=== PATIENT | female | born 1965 | race Caucasian/White ===

== ENCOUNTER 2021-10-02 15:36 | Emergency (ER) | payer BC, MEDICAID, SELFPAY ==
--- NOTE | ~2021-10-02 | XR_ITS ---
EXAMINATION: XR chest 2V DATE: 10/02/2021 16:10 INDICATION: Cough. Shortness of breath. TECHNIQUE: Frontal and lateral views of the chest were obtained. COMPARISON: None. FINDINGS: There is mild elevation of right hemidiaphragm. No pleural effusion or pneumothorax. The he art size is normal. IMPRESSION: 1. No acute cardiopulmonary disease. Reviewed, dictated and finalized at location A. 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
[2021-10-02 15:43] VITALS: BP 152/84; PULSE 64; RESP 16; TEMP 37; O2SAT 98
--- NOTE | 2021-10-02 15:50 | ED.URI ---
HPI - URI/Sore Throat General Chief Complaint: Upper Respiratory Infection Stated Complaint: Sinus Pain/Chest Congestion Time Seen by Provider: 10/02/21 15:40 Source: patient and RN notes reviewed History of Present Illness HPI Narrative: Patient is a 56-year-old female who presents the urgent care with complaints of continuous sinus congestion, fatigue, chest congestion, cough and lethargy. Patient states that it started 2 weeks ago and on Thursday she was placed on a Medrol Dosepak and a Z-Brendon from her PCP on a televisit. Patient has had negative rapid Covid test x3 in the last 2 weeks. Patient was not Covid vaccinated. Patient states that she finished her prescriptions today. Patient is having pain with deep breathing to the left. Denies of chest pain or shortness of breath. Denies of any recent fevers, nausea or vomiting. No other acute complaints. No acute distress noted. Patient aware of the plan of care. Some parts of this dictation were generated by voice recognition software and may contain typographical and/or grammatical inaccuracies. Related Data Home Medications Medication Instructions Recorded Confirmed esomeprazole magnesium [Nexium] 20 mg PO DAILY 10/02/21 10/02/21 estradiol [Divigel] 1 packet TRANSDERMAL DAILY 10/02/21 10/02/21 levocetirizine [Xyzal] 5 mg PO DAILY 10/02/21 10/02/21 montelukast [Singulair] 10 mg PO DAILY 10/02/21 10/02/21 Allergies Allergy/AdvReac Type Severity Reaction Status Date / Time No Known Allergies Allergy Verified 10/02/21 15:56 Review of Systems Review of Systems: CONSTITUTIONAL: Denies fever, chills, or sweats. Reports of fatigue EYES: Denies visual changes, redness, or discharge. ENT: Reports of congestion, rhinorrhea CARDIOVASCULAR: Denies chest pain, palpitations, or edema. RESPIRATORY: Reports of cough without dyspnea. Reports of some left-sided pain with deep breathing GASTROINTESTINAL: Denies abdominal pain, nausea, vomiting, or diarrhea. GENITOURINARY: Denies dysuria or hematuria. SKIN: Denies rash or itching. MUSCULOSKELETAL: Denies back pain, joint pain. Reports of body aches NEUROLOGIC: Denies headache, numbness, or weakness. All other systems reviewed are negative, except as documented in HPI. PMFSH Comments At the time of my signature, I reviewed and agree with the nursing past medical, surgical, social, and family history. There is no relevant family history pertinent to the patient complaint. Exam Narrative: GENERAL: This is a well-nourished, well-developed patient. Appears fatigued HEAD: normocephalic, atraumatic. EYES: PERRL. Sclera clear/white. Vision is grossly intact. EARS: External ears normal, auditory canals clear and without drainage, mild fluid noted behind bilateral TMs without otitis. TMs normal without perforation. Hearing grossly intact. NOSE: External nose normal with no obvious nasal discharge, nares without redness, clear to yellow rhinorrhea. THROAT: Mucous membranes moist, posterior pharynx clear. NECK: Neck supple, non-tender without lymphadenopathy CARDIOVASCULAR: Regular rate and rhythm without murmurs, gallops, or rubs. RESPIRATORY: Slightly diminished left lower without crackles or wheezes. Otherwise clear throughout SKIN: warm, intact with no suspicious lesions or rash, good texture and turgor. NEURO: awake, alert, and oriented to person, place and time. There were no obvious focal neurologic abnormalities. EXTREMITIES: No clubbing, cyanosis, or edema. Course Course Level of Care: Express Care Visit Vital Signs Vital signs: Vital Signs Temperature 98.6 F 10/02/21 15:43 Pulse Rate 64 10/02/21 15:43 Respiratory Rate 16 10/02/21 15:43 Blood Pressure 152/84 H 10/02/21 15:43 Pulse Oximetry 98 10/02/21 15:43 Temperature 98.6 F 10/02/21 15:43 Pulse Rate 64 10/02/21 15:43 Respiratory Rate 16 10/02/21 15:43 Blood Pressure 152/84 H 10/02/21 15:43 Pulse Oximetry 98 10/02/21 15:43 Reviewed-patient
== END 2021-10-02 16:33 | disposition home or self-care (01) ==
PROVIDERS: Emergency Provider Nurse Practitioner Family; PCP Internal Medicine
DX: J32.8 Other chronic sinusitis (principal); K21.9 Gastro-esophageal reflux disease without esophagitis
CPT/HCPCS: 71046; 99213; G0463

== ENCOUNTER 2021-12-23 13:07 | Emergency (ER) | payer BC, MEDICAID, SELFPAY ==
[2021-12-23 13:12] VITALS: BP 150/90; PULSE 65; RESP 20; TEMP 36.5; O2SAT 97
--- NOTE | 2021-12-23 13:17 | ED.EAR ---
HPI - Ear Problem General Chief complaint: Ear Stated complaint: Ear Pain Time Seen by Provider: 12/23/21 13:18 Source: patient Mode of arrival: ambulatory Limitations: no limitations History of Present Illness HPI Narrative: Ms. souza is a 56-year-old female patient presenting to the clinic today with complaints of left ear pain that began yesterday. She reports she had an ice pick stabbing pain to her ear with bloody discharge coming from her ear today. Has had this happen before when her ear ruptured and she received eardrops and this helped her pain. She denies any fever or chills. Does have nasal congestion and felt like her ears were congested. Related Data Home Medications Medication Instructions Recorded Confirmed esomeprazole magnesium [Nexium] 20 mg PO DAILY 10/02/21 12/23/21 levocetirizine [Xyzal] 5 mg PO DAILY 10/02/21 12/23/21 montelukast [Singulair] 10 mg PO DAILY 10/02/21 12/23/21 Allergies Allergy/AdvReac Type Severity Reaction Status Date / Time No Known Allergies Allergy Verified 12/23/21 13:20 Review of Systems Review of Systems: Pertinent positives per HPI. Patient denies any fever, chills, rash, headache, visual changes, dizziness, cough, runny nose, sore throat, shortness of breath, chest pain, palpitations, nausea, vomiting, diarrhea, constipation, abdominal pain, or any urinary issues. PMFSH Comments At the time of my signature, I reviewed and agree with the nursing past medical, surgical, social, and family history. There is no relevant family history pertinent to the patient complaint. Exam Narrative: General: Well-developed, well nourished, in no apparent distress Head: Normocephalic, atraumatic Eyes: Pupils equally round and reactive to light bilaterally, EOM intact, sclera and conjunctive clear, no discharge, lids normal Ears: Right TMs intact, mild bulging, and left TM questionable rupture, flat, mildly red,without any obvious discharge ear canals clear, no drainage, grossly hearing normal. Nose: Nares patent, no nasal discharge, no inflammation, no sinus tenderness. Mouth: Oropharynx without lesions or masses, good dentition, MMM. Neck: Supple, trachea midline, no enlargement of anterior or posterior cervical nodes, no thyroid masses or goiter palpable. Cardio: Regular rate and rhythm, s1 and s2 normal, no murmur appreciated. Resp: Clear to auscultation bilaterally anteriorly and posteriorly, no rhonchi, rales, wheezing or rubs Course Course Emergency Course: Portions of this record may have been created with voice recognition software. Level of Care: Express Care Visit Vital Signs Vital signs: Vital Signs Temperature 36.5 C 12/23/21 13:12 Pulse Rate 65 12/23/21 13:12 Respiratory Rate 20 12/23/21 13:12 Blood Pressure 150/90 H 12/23/21 13:12 Pulse Oximetry 97 12/23/21 13:12 Temperature 36.5 C 12/23/21 13:12 Pulse Rate 65 12/23/21 13:12 Respiratory Rate 20 12/23/21 13:12 Blood Pressure 150/90 H 12/23/21 13:12 Pulse Oximetry 97 12/23/21 13:12 Vital signs reviewed Medical Decision Making MDM Narrative Medical decision making narrative: At the time of visit patient is resting comfortably on the exam table. She reports she is having pain to the left ear with pain also radiating into her jaw and cheek. [place] like an ice pick stabbed her ear and then she developed bloody discharge from the ear. Feels as though her hearing is muffled. I suspect a spontaneous rupture of her ear due to eustachian tube dysfunction. I will go ahead and give her a prescription for some ofloxacin eardrops prevent infection and have her follow-up with an ears nose and throat provider. She voiced understanding of supportive measures and discharge instructions Vital Signs Vital Signs: Vital Signs Temperature 36.5 C 12/23/21 13:12 Pulse Rate 65 12/23/21 13:12 Respiratory Rate 20 12/23/21 13:12 Blood Pressure 150/90 H 12/23/21 13:12 Pulse Oximetry 97 0
== END 2021-12-23 13:34 | disposition home or self-care (01) ==
PROVIDERS: Emergency Provider Nurse Practitioner Family; PCP Internal Medicine
DX: H65.92 Unspecified nonsuppurative otitis media, left ear (principal); H72.92 Unspecified perforation of tympanic membrane, left ear; K21.9 Gastro-esophageal reflux disease without esophagitis
CPT/HCPCS: 99213; G0463

== ENCOUNTER 2023-08-21 08:53 | Emergency (ER) | payer OTHER, SELFPAY ==
[2023-08-21 09:08] VITALS: BP 148/93; PULSE 81; RESP 16; TEMP 36.7; O2SAT 100
--- NOTE | 2023-08-21 09:26 | ED.GENADULT ---
HPI - General Adult General Chief complaint: Urogenital-Female Stated complaint: Urinary Problem Time Seen by Provider: 08/21/23 09:26 Source: patient, RN notes reviewed and old records reviewed Mode of arrival: ambulatory Limitations: no limitations History of Present Illness HPI narrative: 57-year-old female presents to [facility] with complaints of burning with urination, frequency, urgency that started on Thursday evening. Patient states he is having some suprapubic pain. denies fevers, back pain, vomiting MD complaint: dysuria Onset (ago): day(s) (3) Related Data Home Medications Medication Instructions Recorded Confirmed esomeprazole magnesium 20 mg 20 mg PO DAILY 10/02/21 12/23/21 capsule,delayed release (Nexium) levocetirizine 5 mg tablet (Xyzal) 5 mg PO DAILY 10/02/21 12/23/21 montelukast 10 mg tablet 10 mg PO DAILY 10/02/21 12/23/21 (Singulair) Allergies Allergy/AdvReac Type Severity Reaction Status Date / Time No Known Allergies Allergy Verified 12/23/21 13:20 Review of Systems Constitutional: Constitutional: Reports no additional constitutional complaints, Denies body ache(s), Denies chills, Denies fatigue, Denies fever(s) and Denies headache(s) Eyes: Eyes: Reports no additional eye complaints and Denies blurry vision ENT: Reports system reviewed and no additional complaints, except as documented, Denies vertigo, Denies dizziness, Denies ear discharge, Denies otalgia, Denies facial pain, Denies headache(s), Denies nasal congestion, Denies nasal discharge, Denies sinus pain, Denies sinus pressure and Denies sore throat Cardiovascular: Cardiovascular: Reports no additional cardiovascular complaints, Denies chest pain, Denies chest pain at rest, Denies rapid heart rate and Denies dyspnea Respiratory: Respiratory: Reports no additional respiratory complaints, Denies chest congestion, Denies cough, Denies pain on inspiration, Denies pain with cough and Denies dyspnea Gastrointestinal: Gastrointestinal: Reports abdominal pain, Denies diarrhea, Denies nausea and Denies vomiting Genitourinary: Genitourinary: Reports as per HPI, Reports nocturia, Reports dysuria, Denies flank pain, Reports urinary urgency, Denies vaginal discharge and Denies vaginal dryness Integumentary/Breasts: Skin/Breast: Denies rash Neurologic: Reports system reviewed and no additional complaints, except as documented, Denies vertigo, Denies dizziness and Denies headache(s) Endocrine: Endocrine: Denies fatigue PMFSH Comments At the time of my signature, I reviewed and agree with the nursing past medical, surgical, social, and family history. There is no relevant family history pertinent to the patient complaint. Exam Const: General: cooperative, healthy appearing, no acute distress and well nourished Nutritional Appearance: well nourished Orientation/consciousness: patient oriented x3 Limitations: no limitations HENMT: Head: normal to inspection and normocephalic Ears: external ears normal, TM's normal bilaterally, mastoids normal and Abnormal EAC present Face/Nose/Sinus: normal facial exam Face and sinus: normal facial exam Mouth: Yes Normal oral and palatal mucosa present, Yes oropharynx normal and Yes moist mucous membranes Throat: tonsils normal, uvula midline and no uvular edema Eyes: General: appearance normal, both eyes and all related structures Sclera: sclerae normal Pupils: Equal, round and reactive pupils present Resp: Effort & Inspection: normal respiratory effort, able to speak in complete sentences, no audible wheezes, no cough, no respiratory distress and no retractions Cardio: Rate: regular rate GI: Inspection: normal to inspection GI Palp: No abdominal tenderness, Yes Soft to palpation, No Firmness to palpation present (GI), No Tenderness to palpation present (GI), No Guarding due to palpation present (GI) and No Rigid due to palpation Auscultation: normal bowel sounds Skin: General skin exam: normal colo
== END 2023-08-21 09:38 | disposition home or self-care (01) ==
PROVIDERS: Emergency Provider Registered Nurse; PCP Internal Medicine
DX: N30.91 Cystitis, unspecified with hematuria (principal); B96.20 Unspecified Escherichia coli [E. coli] as the cause of diseases classified elsewhere
CPT/HCPCS: 81003; 87077; 87086; 87186; 99213; G0463

== ENCOUNTER 2023-10-06 15:51 | Emergency (ER) | payer OTHER, SELFPAY ==
--- NOTE | 2023-10-06 15:58 | ED.FEMALEGU ---
HPI - Female Genitourinary General Chief complaint: Urogenital-Female Stated complaint: Pain when urinating Time Seen by Provider: 10/06/23 16:30 Source: patient and RN notes reviewed Mode of arrival: ambulatory Limitations: no limitations History of Present Illness HPI Narrative: 58-year-old female presents with concern for urine frequency, urgency, reports low back pain. Reports cloudy urine. She reports she has had urinary tract infection symptoms since July. She has been on antibiotics twice. Reports she has not noticed improvement after her antibiotics in August. She denies any current fever, chills, nausea, vomiting. Denies abnormal vaginal discharge MD elicited complaint: UTI Related Data Home Medications Medication Instructions Recorded Confirmed montelukast 10 mg tablet 10 mg PO DAILY 10/02/21 12/23/21 (Singulair) meloxicam 15 mg tablet mg 10/06/23 10/06/23 Allergies Allergy/AdvReac Type Severity Reaction Status Date / Time No Known Allergies Allergy Verified 10/06/23 16:02 Review of Systems Review of Systems: CONSTITUTIONAL: Denies malaise, chills, sweats, or fever. CARDIOVASCULAR: Denies chest pain, palpitations, or edema. RESPIRATORY: Denies cough or dyspnea. GASTROINTESTINAL: Denies abdominal pain, nausea, vomiting, diarrhea GENITOURINARY: Reports frequency, urgency, suprapubic pressure. Denies flank pain or hematuria. SKIN: Denies rash or itching. MUSCULOSKELETAL: Reports left back pain. Denies myalgia. All systems reviewed & are unremarkable except as noted in HPI and below PMFSH Comments At time of signature, agree with nursing past medical, surgical, social and family history. There is no relevant family history pertinent to the presenting complaint Exam Narrative: GENERAL: Well-appearing, well-nourished, and in no acute distress. HEAD: Normocephalic. EYES: PERRLA, conjunctivae clear. NECK: Supple. No lymphadenopathy CHEST: Clear to auscultation. No respiratory distress. HEART: Regular rate and rhythm. SKIN: Warm, dry, no rash. NEURO: Alert and oriented x3. PSYCH: Normal mood and affect Course Course Emergency Course: Patient is aware of diagnosis, understands and agrees to treatment plan. Anticipatory guidance given. Patient agrees to follow-up as directed and is aware of reasons to seek care at the emergency department. Portions of this record may have been created with voice recognition software Level of Care: Express Care Visit Vital Signs Vital signs: Reviewed. MDM - Female Genitourinary MDM Narrative Medical decision making narrative: Urinalysis appears normal, discussed with patient option of waiting for culture results before starting antibiotics versus starting them now. Patient would like to wait. She was given a he referral to urology for her ongoing symptoms Exam findings and UA show no acute concerns or changes; patient is non-toxic appearing and is in no distress. Patient is appropriate for outpatient treatment and follow-up. Differential Diagnosis Differential diagnosis: Likely urinary tract infection and cystitis Critical Care Time Critical Care Time Critical Care Time: No Discharge Plan Discharge Clinical Impression: Urinary frequency Patient Disposition: Home, Self-Care Condition: Stable Instructions: Urinary Urgency and Frequency (DC) Additional Instructions: We will send a urine culture to the lab; if the culture identifies an organism that requires antibiotic, you will receive a phone call from an urgent care staff member and an appropriate antibiotic will be prescribed. Increase water intake. Tylenol/ibuprofen as needed for pain or fever -Follow-up with Urology for further evaluation. Seek ER visit if condition worsens with high fever, nausea, vomiting and severe back pain. Prescriptions: No Action montelukast [Singulair] 10 mg Tablet 10 mg PO DAILY meloxicam 15 mg tablet Follow-up/R
[2023-10-06 16:03] VITALS: BP 145/80; PULSE 65; RESP 16; TEMP 36.6; O2SAT 98
== END 2023-10-06 16:41 | disposition home or self-care (01) ==
PROVIDERS: Emergency Provider Nurse Practitioner; PCP Internal Medicine
DX: R35.0 Frequency of micturition (principal); K21.9 Gastro-esophageal reflux disease without esophagitis
CPT/HCPCS: 81003; 87086; 99213; G0463

== ENCOUNTER 2024-01-25 10:32 | Emergency (ER) | payer OTHER, SELFPAY ==
--- NOTE | ~2024-01-25 | XR_ITS ---
EXAMINATION: XR abdomen/kub 1V DATE: 01/25/2024 11:27 INDICATION: Kidney stone. TECHNIQUE: A supine view of the abdomen on 2 radiographs was obtained. COMPARISON: None. FINDINGS: There are no dilated loops of bowel. There is a 4 mm calcification in right pelvis. IMPRESSION: 1. 4 mm calcification in right pelvis, which may be a phlebolith or distal ureteral stone. Reviewed, dictated and finalized at location A. IMPRESSION: 1. 4 mm calcification in right pelvis, which may be a phlebolith or distal uret eral stone.
[2024-01-25 10:40] VITALS: BP 155/76; PULSE 93; RESP 20; TEMP 36.4; O2SAT 98
--- NOTE | 2024-01-25 11:11 | ED.GENADULT ---
HPI - General Adult General Chief complaint: Urogenital-Female Stated complaint: Urinary Problem Time Seen by Provider: 01/25/24 11:00 Source: patient, RN notes reviewed and old records reviewed Mode of arrival: ambulatory Limitations: no limitations History of Present Illness HPI narrative: 58-year-old [facility] for complaint lower pain radiating to lower left abdomen and nausea for 3 days that is worse with movement and acutely worse with bowel movement. Patient endorses history of kidney stones and states when she called her PCP today she was advised to be seen at [facility] for a kub x-ray completed to rule out kidney stone. Patient endorsing 8/10 pain. patient has attempted to treat at home with [id number] medications without relief. Patient denies vomiting, changes in bowel habits, fever, dysuria, urinary frequency, hematuria. Patient able to tolerate fluids by mouth. Patient hypertensive in triage. Patient in moderate distress from pain in exam room. Respirations even and nonlabored. No acute distress. Related Data Home Medications Medication Instructions Recorded Confirmed montelukast 10 mg tablet 10 mg PO DAILY 10/02/21 01/25/24 (Singulair) meloxicam 15 mg tablet 15 mg PO DAILY 10/06/23 01/25/24 Allergies Allergy/AdvReac Type Severity Reaction Status Date / Time No Known Allergies Allergy Verified 10/06/23 16:02 Review of Systems Review of Systems: All systems reviewed & are unremarkable except as noted in HPI and below Constitutional: Constitutional: Reports as per HPI, Reports difficulty sleeping, Denies fever(s) and Denies poor appetite Eyes: Eyes: Reports no additional eye complaints ENT: Reports system reviewed and no additional complaints, except as documented Cardiovascular: Cardiovascular: Reports no additional cardiovascular complaints, Denies chest pain and Denies dyspnea Respiratory: Respiratory: Reports no additional respiratory complaints, Denies cough and Denies dyspnea Gastrointestinal: Gastrointestinal: Reports abdominal pain ( Lower left quadrant), Denies change in stool character, Reports nausea and Denies vomiting Genitourinary: Genitourinary: Reports as per HPI, Denies hematuria, Denies dysuria, Denies urinary hesitancy and Denies urinary urgency Musculoskeletal: Musculoskeletal: Reports as per HPI and Reports back pain ( lower left) Neurologic: Reports system reviewed and no additional complaints, except as documented Psychiatric: Psychiatric: Reports no additional psychiatric complaints PMFSH Comments At the time of my signature, I reviewed and agree with the nursing past medical, surgical, social, and family history. There is no relevant family history pertinent to the patient complaint. Exam Const: General: cooperative, no acute distress, alert, in distress moderate ( from pain), tired appearing, uncomfortable and well nourished Nutritional Appearance: well nourished Orientation/consciousness: patient oriented x3 Limitations: no limitations HENMT: Head: normal to inspection Ears: external ears normal Face/Nose/Sinus: Normal external nose present, Normal nares present, normal facial exam, No erythema and No edema Face and sinus: normal facial exam, no erythema and no edema Mouth: Yes Normal oral and palatal mucosa present Eyes: General: appearance normal, both eyes and all related structures Neck: Neck: normal visual inspection, full ROM and no meningeal signs Lymphatic: no lymphadenopathy noted and no lymphedema noted Chest: Chest palpation & inspection: normal inspection of the chest Resp: Effort & Inspection: normal respiratory effort and able to speak in complete sentences Auscultation: clear to auscultation bilaterally Cardio: Jugular venous distension: no JVD Rate: regular rate Rhythm: regular rhythm GI: GI Palp: Yes abdominal tenderness ( lower left quadrant) and Yes Soft to palpation : General: Yes no CVA tenderness
== END 2024-01-25 12:06 | disposition short-term general hospital (02) ==
LOC: EXPBETH 10:35
PROVIDERS: Emergency Provider Nurse Practitioner Family; PCP Internal Medicine
DX: N39.0 Urinary tract infection, site not specified (principal); M54.50 Low back pain, unspecified; Z87.442 Personal history of urinary calculi
CPT/HCPCS: 74018; 81003; 87086; 99213; G0463

== ENCOUNTER 2025-05-06 16:00 | Emergency (ER) | payer OTHER, SELFPAY ==
--- NOTE | ~2025-05-06 | XR_ITS ---
EXAMINATION: XR wrist LT min 3V, 05/06/2025 16:10 CDT HISTORY: FOOSH INJURY, GEN PAIN COMPARISON: No comparisons available. Findings: No acute fracture or malalignment. No significant degenerative changes. Soft tissues unremarkable. Impression: No acute fracture or malalignment. Reviewed, dictated and finalized at location A. Impression: No acute fracture or malalignment.
--- NOTE | ~2025-05-06 | XR_ITS ---
EXAMINATION: XR hand LT min 3V, 05/06/2025 16:05 CDT HISTORY: FOOSH INJURY, GEN PAIN COMPARISON: No comparisons available. Findings: No acute fracture or malalignment. No significant degenerative changes. Soft tissues unremarkable. Impression: No acute fracture or malalignment. Reviewed, dictated and finalized at location A. Impression: No acute fracture or malalignment.
--- OUTSIDE RECORDS SUMMARY | 2025-05-06 16:02 | XMS_ITS | Clinical Summary ---
Author Organization [facility] Address [address] [place] [address] Care Team Providers Care Lacquer Shader Name Role Phone Germain Wyman MD Primary Care Provider + Allergies Active Allergy Reactions Criticality Noted Date Comments Butorphanol Headache,Nausea & Vomiting Low Gluten Diarrhea Low Has a form of celiac Levonorgestrel-Ethinyl Estrad Headache Low Medications cholecalciferol (VITAMIN D3) 5,000 unit tablet take 1 by by mouth route every day 90 0 08/15/20 16 Active calcium carbonate-vitamin D3 (OS-KEESHA 500 + D3) 500mg (1,250mg) -600 unit tablet take 1 by Oral route once day 0 0 08/15/20 16 Active cyanocobalamin-cob amamide (B12) 5,000-100 mcg lozenge 0 lozenge 0 12/25/19 17 Active magnesium gluconate 200 mg tablet take 2 by Oral route once 0 0 12/25/19 17 Active montelukast (SINGULAIR) 10 mg tabletIndications: Medication management TAKE 1 TABLET BY ORAL ROUTE EVERY DAY IN THE EVENING 30 tablet 3 04/13/20 17 Active EPINEPHrine 0.3 mg/0.3 mL auto-injection syringeIndications :Anaphylaxis Inject 0.3 mL (0.3 mg total) into the muscle as instructed as needed for anaphylaxis. Call 911 after use. 2 Syringe 04/02/20 18 Active levocetirizine (XYZAL) 5 mg tablet daily 05/12/20 14 Active omeprazole 20 mg tablet,delayed release (DR/EC) Take by mouth 05/03/20 08 Active estradioL 1 mg/gram (0.1 %) gel in packet Place 1 Application on the skin daily 1 g 6 05/08/20 23 Active ondansetron ODT (ZOFRAN-ODT) 4 mg disintegrating tablet Take 1 tablet (4 mg total) by mouth every 8 (eight) hours as needed for nausea or vomiting 20 tablet 01/25/20 24 Active triamcinolone (KENALOG) 0.1 % cream Apply topically 2 (two) times a day 12/28/19 24 Active meloxicam (MOBIC) 15 mg tabletIndications: Rotator cuff syndrome of right shoulder,Shoulder impingement, right,Periscapular pain TAKE 1 TABLET (15 MG TOTAL) BY MOUTH DAILY TAKE WITH FOOD 90 tablet 08/02/20 24 Active cream base no.52, bulk, cream BIEST 1MG (80/20)/1ML HRT CREAM (HRT HEAVY CREAM). APPLY 4 CLICKS (1ML) TOPICALLY TO CLEAN, DRY INTACT SKIN EVERY DAY. RUB IN THOROUGHLY FOR 1-2 MINUTES. 30 g 1 05/05/20 25 Active cream base no.52, bulk, cream BIEST 1MG (80/20)/1ML HRT CREAM (HRT HEAVY CREAM). APPLY 4 CLICKS (1ML) TOPICALLY TO CLEAN, DRY INTACT SKIN EVERY DAY. RUB IN THOROUGHLY FOR 1-2 MINUTES. 30 g 5 07/26/20 24 025 Discontin ued(Reord er) Active Problems Problem Noted Date Diagnosed Date Hormone replacement therapy 05/08/2023 Assessment & Plan (05/08/2023 1:10 PM CDT): Risks and benefits of hormone replacement (HRT) for vasomotor symptoms related to menopause discussed. Patient aware risks associated with HRT include increased risk of blood clots, heart attack, stroke, and increased risk of breast cancer. Patient verbalizes understanding of risk and benefits and wishes to proceed with HRT. Plan to continue compounded topical estradiol/testosterone cream Biest- will call when refills needed. Labial irritation 02/25/2018 Overview (02/25/2018): See problem note above. Assessment & Plan (02/25/2018 5:28 AM CDT): Apply thin layer of clobetasol 0.05% to labial irritation, 1 to 2 times a day, Thursday through Thursday for 3 weeks; call office if symptoms persist beyond 3 weeks; discontinue when symptoms resolve but not to use more than 4 months. 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 Gastroesophageal reflux disease 07/11/2013 Overview (12/11/2016): GERD (gastroesophageal reflux disease) Resolved Problems Problem Noted Date Diagnosed Date Resolved Date Encounter for screening colonoscopy 10/26/2019 04/09/2022 Overview (10/26/2019): Added automatically from request for surgery [id number] Healthcare maintenance 03/12/201704/09 Medication management 03/12/20172021 Elevated blood pressure reading 03/12/2017 04/09/2022 Encounters Date Type Department Care Team Description 05/05/2025 Telephone [facility] [address] [place] [id number] Keisha Elena RN HRT Cream Refill from Last 3 Months Surgical History Surgery Date Site/Laterality Comments OTHER SURGICAL HISTORY TLH with RSO OTHER SURGICAL HISTORY bone marrow donation surgery OTHER SURGICAL HISTORY Endometriosis: Lap surgery OTHER SURGICAL HISTORY 09/07/1995 - 09/06/1996 Breast lump: lumpectomy, fibrocystic OTHER SURGICAL HISTORY 09/07/2012 - 09/06/2013 GI flu, dehydration, syncope: Hit head: concussion OTHER SURGICAL HISTORY 09/07/2009 - 09/06/2010 Hysterectomy, TLH, RSO HYSTERECTOMY OOPHORECTOMY Right BREAST BIOPSY Left Medical History Medical History Date Comments Endometritis Endometriosis Hx Other Medical Breast lump Hx Other Medical 2013 GI flu, dehydra tion, syncope Hx Other Medical Blood clots in leg Hx Other Medical Gastric Reflux Hx Other Medical DNC february 2005 Hx Other Medical Laperscopic sep 2005 Hx Other Medical Breast Tumor No vember 1995 Fibrocystic breast Breast injury softball injury , hit in breast with softball in 2000 on lt side Family History Medical History Relation Name Comments Leukemia Brother Leukemia; Hyperlipidemia Father High choleste rol; Breast cancer Maternal Grandmother Cancer , breast; Breast cancer Mother Cancer, breast ; Depression Mother Depression; Hypertension Mother Hypertension; Heart disease Other 1 Family history of Heart problems; Cancer Other 2 Family history of Cancer, unknown; Gout Other 3 Family history of Gout; Hypertension Other 4 Family history of Hypertension; Diabetes Other 5 Family history of Diabetes mellitus; Relation Name Status Comments Brother Father Maternal Grandmother Mother Other 1 Other 2 Other 3 Other 4 Other 5 Social History Tobacco Use Types Packs/Day Years Used Date Smoking Tobacco: Never Smokeless Tobacco: Never Tobacco Cessation:Counseling Given: Not Answered Alcohol Use Standard Drinks/Week Comments Yes 0 (1 standard drink = 0.6 oz pur e alcohol) PHQ-2 Answer Date Recorded PHQ-2 Total Score (If total score is 3 or more points, staff should administer the PHQ-9) 0 05/08/2023 Personal Safety Answer Date Recorded Have you ever been in or are you currently in a harmful physical or emotional relationship or is someone making you feel afraid or unsafe? 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 FIRE Gender Identity Not on file Sexual Orientation Straight 02/05/2020 8: 33 AM CDT Obstetrics History Para Term AB IAB SAB Ectopic Multiple Livin g Live Births 1 1 1 1 1 Date Outcome GA Total Labor Labor/2nd/3rd Weight Sex Type Anes PTL Amy A1 A5 Name Clin 2005 Term M Vag-S pont Living Last Filed Vital Signs Vital Sign Reading Time Taken Comments Blood Pressure 156/98 09/26/2024 9:59 AM MANAGER FIRE Pulse 97 09/26/2024 9:59 AM MANAGER FIRE Temperature 36.6 C (97.8 F) 09/26/2024 9:59 AM MANAGER FIRE Respiratory Rate 18 09/26/2024 9:59 AM MANAGER FIRE Oxygen Saturation 98% 09/26/2024 9:59 AM MANAGER FIRE Inhaled Oxygen Concentration - - Weight 103.4 kg (228 lb) 09/26/2024 9:59 AM MANAGER FIRE Height 170.2 cm (5' 7) 09/26/2024 9:59 AM MANAGER FIRE Body Mass Index 35.71 09/26/2024 9:59 AM MANAGER FIRE Plan of Treatment Health Maintenance Due Date Last Done Comments Colon Cancer Screening-Colonoscopy 1965 Hepatitis C Screening 1965 DTaP/Tdap/Td Vaccine (1 - Tdap) 1978 Hepatitis B Screening 1985 Zoster Vaccine (1 of 2) 2017 Depression Screening 05/08/2024 05/08/2023, 03/06/2022, 02/12/2021, Additional history exists Influenza Vaccine (#1) 2025 Regular Well Visit/Exam 18-64 06/06/2025 06/06/2024, 05/08/2023, 03/06/2022, Additional history exists Breast Cancer Screening-Mammogram 06/22/2025 06/22/2024, 05/29/2023, 05/06/2022, Additional history exists Pneumococcal vaccine <65 Aged Out No longer eligible based on patient's age to complete this topic Procedures Procedure Name Priority Date/Time Associated Diagnosis Comments SCREENING MAMMOGRAM BILATERAL W RICCO Schedule Routine, Read Routine (OP Routine) 06/22/2024 1:22 PM CDT Screening mammogram, encounter for from Last 3 Months or Most Recently Relevant to Health Maintenance Results * Screening Mammogram Bilateral W Ricco (06/22/2024 1:22 PM CDT) Anatomical Region Laterality Modality Breast Bilateral Mammography 06/22/2024 4:47 PM CDT Impressions 06/22/2024 4:47 PM CDT There is no mammographic evidence of malignancy. A 1 year screening mammogram is recommended. BI-RADS: 1 - Negative. The patient has been or will be contacted. The patient will be entered into a reminder system with a target due date of 1 year for her next mammogram. Electronically signed by: Dory Kothari M.D. Narrative 06/22/2024 4:47 PM CDT EXAMINATION: SCREENING MAMMOGRAM BILATERAL W RICCO ORDERING HEALTHCARE PROVIDER: SELF SCREENING MAMMOGRAM HISTORY: Routine screening mammography. COMPARISON: 05/29/2023,05/29/2022, 05/24/2021, 05/23/2020 TECHNIQUE: CC and MLO views of the bilateral breasts were obtained with digital technique using breast tomosynthesis with C view. Computer aided detection was utilized. FINDINGS: DENSITY: There are scattered areas of fibroglandular density. BREASTS: There are no suspicious masses, suspicious calcifications, or other suspicious findings in either breast. There has been no suspicious interval change. us Self Screening Mammogram IMG MAMMO PROCEDURES Fi nal Result from Last 3 Months or Most Recently Relevant to Health Maintenance Insurance [facility] Member Subscriber Plan / Payer (Ef fective 2019-Present) Name:Dayan Villagomez Relation to Subscriber:Self Name:Dayan Villagomez Payer ID:[id number] (NAIC) Type:[facility] Address: [address] IDPA [facility] Care Teams Lacquer Shader Relationship Specialty Start Date End Date Germain Wyman MD [address] [facility] [place] [id number] PCP - General 12/05/16
--- OUTSIDE RECORDS SUMMARY | 2025-05-06 16:02 | XMS_ITS | Encounter Summary ---
Author Organization [facility] Address [address] [place] [address] Care Team Providers Care Nuclear Radiologist Name Role Phone Germain Wyman MD Primary Care Provider + Reason for Visit * Reason Onset Date Comments HRT Cream Refill 05/05/2025 Encounter Details Date Type Department Care Team (Late st Contact Info) Description 05/05/2025 Telephone [facility] [address] [address] Keisha Elena RN HRT Cream Refill Social History Tobacco Use Types Packs/Day Years Used Date Smoking Tobacco: Never Smokeless Tobacco: Never Alcohol Use Standard Drinks/Week Comments Yes 0 [...] on file 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 APPLY 4 CLICKS (1ML) TOPICALLY TO CLEAN, DRY INTACT SKIN EVERY DAY. RUB IN THOROUGHLY FOR 1-2 MINUTES. 30 g 1 05/05/2025 documented in this encounter Miscellaneous Notes * Telephone Encounter - Keisha Elena RN - 05/05/2025 8:52 AM CDT HRT Cream erx'ed to [facility] in [place] until her [employer] . documented in this encounter Plan of Treatment Not on file documented as of this encounter Visit Diagnoses Not on filedocumented in this encounter Discontinued Medications Medication Sig Discontinue Reason Start Date End Da te cream base no.52, bulk, cream BIEST 1MG (80/20)/1ML HRT CREAM (HRT HEAVY CREAM). APPLY 4 CLICKS (1ML) TOPICALLY TO CLEAN, DRY INTACT SKIN EVERY DAY. RUB IN THOROUGHLY FOR 1-2 MINUTES. Reorder 07/26/2024 05/05/2025 documented as of this encounter Care Teams Nuclear Radiologist Relationship Specialty Start Date End Date Germain Wyman MD [address] [facility] [place] [id number] PCP - General 12/05/16 documented as of this encounter
--- OUTSIDE RECORDS SUMMARY | 2025-05-06 16:04 | XMS_ITS | Clinical Summary ---
Author Organization [facility] Address [address] [place] [address] Phone Care Team Providers Care Electrical Engineering Draftsperson Name Role Phone Unavailable Primary Care Provider Unavailabl e Medications No known medications Active Problems Patient Care Coordination No te Formatting of this note migh t be different from the original. Rajeev No additional problems on file Social History Tobacco Use Types Packs/Day Years Used Date Smoking Tobacco: Never Assessed Comments Unknown Sex and Gender Information Value Date Recorded Sex Assigned at Not on file Legal Sex Female 12:20 AM CDT Gender Identity Not on file Sexual Orientation Not on file Last Filed Vital Signs Vital Sign Reading Time Taken Comments Blood Pressure 142/86 11/14/2021 10:11 AM SLOT MACHINE REPAIRER Pulse 75 11/14/2021 10:11 AM SLOT MACHINE REPAIRER Temperature - - Respiratory Rate - - Oxygen Saturation - - Inhaled Oxygen Concentration - - Weight 105.2 kg (232 lb) 11/14/2021 9:43 AM SLOT MACHINE REPAIRER Height 172.7 cm (5' 8) 11/14/2021 9:43 AM SLOT MACHINE REPAIRER Body Mass Index 35.28 11/14/2021 9:43 AM SLOT MACHINE REPAIRER Plan of Treatment Health Maintenance Due Date Last Done Comments Hepatitis C Virus (HCV) Screening 1965 TdaP Immunization 1967 Hepatitis B Immunization (1 of 3 - 19+ 3-dose series) 1986 Pap Smear 1988 Cervical Cancer Screening (CCS) 1997 HPV/Cotest 1997 Cologuard 2012 Colonoscopy 2012 Colorectal Cancer Screening 2012 Immunochemical Fecal Occult Blood 2012 Pneumococcal Immunization (5 0+ years) (1 of 1 - PCV) 2017 Zoster Immunization (1 of 2) 2017 SARS-COV-2 Immunization (1 - season) 2024 Influenza Immunization (#1) 2025 Respiratory Syncytial Virus (RSV) Immunization (Adult) (1 - 1-dose 75+ series) 2042 Human Papillomavirus (HPV) Immunization Aged Out No longer eligible b ased on patient's age to complete this topic Meningococcal Immunization (ACWY) Aged Out No longer eligible based on patient's age to complete this topic Rotavirus Immunization Aged Out No lo nger eligible based on patient's age to complete this topic [place] [address] [place] [address]
--- NOTE | 2025-05-06 16:07 | ED_ITS ---
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 States she fell when she was running away from wasps after she was stung about 6 times to the leg, back and shoulder.Pt reports an allergy to the wasps, and has an Epi pen. Denies any swelling or sob, wheezing, nausea, or dizziness; denies deformity or bruising. Related Data Home Medications ?Medication ?Instructions ?Recorded ?Confirmed ?Last Taken ?Type montelukast 10 mg tablet 10 mg PO DAILY 10/02/2101/06 Unknown History (Singulair) meloxicam 15 mg tablet 15 mg PO DAILY 10/06/2301/06 Unknown History Allergies Allergy/AdvReac Type Severity Reaction Status Date / Time No Known Allergies Allergy Verified 05/06/25 16:09 Review of Systems Review of Systems: CONSTITUTIONAL: Denies body aches, fever, chills EYES: Denies visual changes ENT: Denies rhinorrhea, congestion CARDIOVASCULAR: Denies chest pain, palpitations, or edema. RESPIRATORY: Denies cough or dyspnea. SKIN: Denies rash, itching, or wounds. MUSCULOSKELETAL: reports left wrist pain NEUROLOGIC: Denies headache, numbness, tingling, or weakness. All systems reviewed & are unremarkable except as noted in HPI and below PMFSH Comments At time of signature, I have reviewed and agree with nursing past medical, surgical, social and family history unless otherwise noted. Please see nursing chart for further information. There is no relevant family history pertinent to the presenting complaint Exam Narrative: GENERAL: Well-appearing CHEST: Speaks in full sentences. No respiratory distress. HEART: Regular rate and rhythm. Normal and equal peripheral pulses. EXTREMITIES: Left hand has normal strength and sensation. Slightly decreased range of motion of left wrist due to pain with movement. Mild swelling to distal ulna, tender with palpation. No ecchymosis, No open wounds, or obvious deformity; alignment normal, pulse palpable and equal bilaterally, skin warm, d ry, pink. Capillary refill less than 3 seconds. SKIN: Scattered superficial abrasions to knees NEURO: Alert and oriented x3. PSYCH: Normal mood and affect Course Course Emergency Course: Patient is aware of diagnosis, understands and agrees to treatment plan. Anticipatory guidance given. Patient agrees to follow-up as directed and is aware of reasons to seek care at the emergency department. Portions of this record may have been created with voice recognition software Level of Care: Express Care Visit Vital Signs Vital signs: Reviewed MDM - Extremity Injury (Upper) MDM Narrative Medical decision making narrative: Discussed physical exam findings an x-ray. Andrés wrap applied. Advised supportive measures and signs/symptoms to go to the ER. Pt is appropriate for outpt treatment and f/u. Differential Diagnosis Differential diagnosis: Likely sprain and strain of wrist, fracture of wrist and fracture of hand Imaging Data Radiologist's impression: Patient: Dayan Sainz : 1965 MR#: [id number] Age: 59 Acct:[id number] Loc: ADM Date: 05/06/25Attending Dr: EXAMINATION: XR hand LT min 3V, 05/06/2025 16:05 CDT HISTORY: FOOSH INJURY, GEN PAIN COMPARISON: No comparisons available. Findings: No acute fracture or malalignment. No significant degenerative changes. Soft tissues unremarkable. Impression: No acute fracture or malalignment. Patient: Dayan Sainz : 1965 MR#: [id number] Age: 59 Acct:[id number] Loc: ADM Date: 05/06/25Att Dr: EXAMINATION: XR wrist LT min 3V, 05/06/2025 16:10 CDT HISTORY: FOOSH INJURY, GEN PAIN COMPARISON: No comparisons available. Findings: no acute fracture or malalignment. No significant degenerative changes. Soft tissues unremarkable. Impression: No acute fracture or malalignment. Discharge Plan Discharge Clinical Impression: Sprain and strain of wrist Patient Disposition: Home Condition: Stable Instructions: Wrist Sprain (ED) Additional Instructions: Rest- avoid lifting, pushing, pulling etc; activity as tolerated elevate the left hand and Apply ice 15-20 minute intervals several times a day Keep it wrapped with ANDRÉS or use a soft wrist splint Motrin 800mg every 8 hours, alternate with Tylenol 1000mg every 8 hours as needed Follow up with your primary care provider as needed Go to the ER for worsening symptoms or concerns Patient Language: Citizen Of [place] Prescriptions: No Action montelukast [Singulair] 10 mg Tablet 10 mg PO DAILY meloxicam 15 mg tablet 15 mg PO DAILY Follow-up/Referrals: Garo,Vaelntino Joshi MD [Primary Care Provider] Time of Disposition: 16:35
[2025-05-06 16:09] VITALS: BP 151/79; PULSE 85; RESP 20; TEMP 36.5; O2SAT 97
== END 2025-05-06 16:41 | disposition home or self-care (01) ==
PROVIDERS: Emergency Provider Nurse Practitioner Family; PCP Internal Medicine
DX: S63.502A Unspecified sprain of left wrist, initial encounter (principal); S66.912A Strain of unspecified muscle, fascia and tendon at wrist and hand level, left hand, initial encounter; W19.XXXA Unspecified fall, initial encounter; Y93.02 Activity, running
CPT/HCPCS: 73110; 73130; 99213; G0463